=== PATIENT | female | born 1960 | race Asian ===

== ENCOUNTER 2018-10-30 07:07 | Inpatient (IN) | payer OTHER ==
[2018-10-27 12:04] VITALS: BMI 29.2
[2018-10-30] MEDS ORDERED: Levofloxacin 500 mg/D5W 100 ml Premix Bag ONE (07:56)
[2018-10-30] MEDS ORDERED: Clindamycin/D5W 900 mg/50 ml Premix Bag ONE (07:56)
[2018-10-30 08:40] LABS: #Basophils 0.1 thou/uL (0.0-0.2); #Eosinphils 0.3 thou/uL (0.0-0.7); #Lymphocytes 2.8 thou/uL (1.20-3.40); #Monocytes 0.5 thou/uL (0.11-0.59); #Neutrophils 4.5 thou/uL (1.40-6.50); %Basophils 0.7 % (0.0-1.0); %Eosinophils 3.7 % (0.0-10.0); %Lymphocytes 34.3 % (21.0-51.0); %Monocytes 6.3 % (0.0-10.0); %Neutrophils 55.1 % (42.0-75.0); Hemoglobin 14.5 g/dL (12.0-16.0); Mean Corpuscular HGB CONC 33.2 g/dL (32.0-36.0); Mean Corpuscular Volume 81.2 fL (78.0-98.0); Mean Platelet Volume 8.2 fL (7.4-10.4); Platelet Count 249 thou/uL (130-400); RBC Distribution Width 12.7 % (11.5-14.5); Red Blood Cell (RBC) Count 5.38 mill/uL (4.20-5.40); White Blood Cell (WBC) Count 8.2 thou/uL (4.8-10.8)
[2018-10-30] MEDS ORDERED: Sodium Chloride 0.9% 10 ML ONE (08:50)
[2018-10-30 08:57] LABS: Anion Gap 13 mmol/L (10-20); BUN (Urea Nitrogen) 10 mg/dL (9.8-20.1); Calc. Creatinine Clearance 91 mL/min (70-130); Calcium 9.6 mg/dL (7.8-10.44); Carbon Dioxide 25 mmol/L (22-29); Chloride 104 mmol/L (98-107); Estimated GFR-MDRD 84; Glucose 112 mg/dL (70-105); Potassium 3.3 mmol/L (3.5-5.1); Sodium 139 mmol/L (136-145)
[2018-10-30] MEDS ORDERED: Fentanyl 100 MCG/2 ML VIAL ONE ×3 (09:04→11:17)
[2018-10-30] MEDS ORDERED: tiZANidine HCl 4 MG TAB PO PRN (10:56)
[2018-10-30] MEDS ORDERED: Ondansetron PF 4 MG/2 ML Vial IM PRN (10:56)
[2018-10-30] MEDS ORDERED: Promethazine HCl 12.5 MG SUPP PR PRN (10:56)
[2018-10-30] MEDS ORDERED: traMADol HCl 50 MG TAB PO PRN ×2 (10:56)
[2018-10-30] MEDS ORDERED: diphenhydrAMINE 50 MG/ML VIAL IVP PRN (10:56)
[2018-10-30] MEDS ORDERED: Mag-Al 1200 mg/1200 mg/30 ML UDCUP PO PRN (10:56)
[2018-10-30] MEDS ORDERED: Milk Of Magnesia 30 ML UDCUP PO PRN (10:56)
[2018-10-30] MEDS ORDERED: Promethazine 25 MG TAB PO PRN (10:56)
[2018-10-30] MEDS ORDERED: HYDROcodone/Acetaminophen 10/325 mg Tablet PO PRN (10:56)
[2018-10-30] MEDS ORDERED: Promethazine HCl 25 MG/ML VIAL IM PRN ×2 (10:56→11:29)
[2018-10-30] MEDS ORDERED: diphenhydrAMINE 25 MG CAP PO PRN (10:56)
[2018-10-30] MEDS ORDERED: Morphine 4 MG/ML VIAL SLOW IVP PRN (10:56)
[2018-10-30] MEDS ORDERED: Morphine 2 MG/ML SYRINGE SLOW IVP PRN (11:15)
[2018-10-30] MEDS ORDERED: Ondansetron HCl/PF 4 MG/2 ML Vial IVP PRN (11:29)
[2018-10-30] MEDS ORDERED: Promethazine HCl 25 MG/ML VIAL SLOW IVP PRN (11:29)
--- NOTE | 2018-10-30 12:07 | OP ---
DATE OF PROCEDURE: 10/30/2018 CERTIFIED CODER: Nicole Joseph PA-C PROCEDURE PERFORMED: Lumbar laminectomy, L3 to L5, posterolateral arthrodesis, pedicle screw instrumentation, L4, L5, demineralized bone matrix, local morselized autograft. DESCRIPTION OF PROCEDURE: The patient was brought to the operating room and intubated. She was rolled in the prone position on gel-filled chest rolls. An incision was made exposing L3 through L5 and the level was confirmed by x-ray. We performed complete L5, complete L4, and inferior L3 laminectomies, completely decompressing L3 through L5. There were two pin holes in the dura related to bony spicules with CSF emanating from the dura. After complete decompression had been secured, pedicle screws were placed at right L4 and right L5 using lateral fluoroscopic guidance. The tae was secured between the screws, connected by nuts, which were final tightened. The wound was then extensively irrigated and MAC hemostasis was secured. A combination of demineralized bone matrix, local morselized autograft was laid over the lamina and posterolateral surfaces for the purpose of arthrodesis. Vancomycin powder was applied and the wound was then closed in anatomic layers over drain after the application of DuraSeal. Job ID: [id number]
[2018-10-30] MEDS: HYDROcodone/Acetaminophen 10/325 mg Tablet PO PRN ×3 (12:49→22:09)
[2018-10-30] MEDS: Sodium Chloride 0.9% 1,000 ML IV SCH (12:54)
[2018-10-30] MEDS ORDERED: PROPOFOL 200 MG/20 ML VIAL ONE (14:55)
[2018-10-30] MEDS ORDERED: Succinylcholine Chloride 20 MG/ML 10 ml SYRINGE FS ONE (14:55)
[2018-10-30] MEDS ORDERED: Dexamethasone 20 MG/5 ML VIAL ONE (14:55)
[2018-10-30] MEDS ORDERED: Lidocaine 1% PF 5 ML VIAL ONE (14:55)
[2018-10-30] MEDS ORDERED: Rocuronium Bromide 10 MG/ML (10ML VIAL) ONE (14:55)
[2018-10-30] MEDS ORDERED: Glycopyrrolate 0.2 MG/ML 5 ML SYRINGE ONE (14:55)
[2018-10-30] MEDS ORDERED: Ketorolac Tromethamine 30 MG/ML VIAL ONE (14:55)
[2018-10-30] MEDS ORDERED: Ondansetron PF 4 MG/2 ML Vial ONE (14:55)
[2018-10-30] MEDS ORDERED: ePHEDrine 50 MG/ML VIAL ONE (14:55)
--- NOTE | 2018-10-30 15:20 | EKG ---
Test Reason : PREOP Blood Pressure : / mmHG Vent. Rate : 075 BPM Atrial Rate : 075 BPM P-R Int : 166 ms QRS Dur : 082 ms QT Int : 404 ms P-R-T Axes : 054 051 013 degrees QTc Int : 451 ms Normal sinus rhythm Normal ECG No previous ECGs available Confirmed by DR. Kristofer PLUNKETT ([id number]) on 10/30/2018 3:19:42 PM Referred By: MONTEZ Confirmed By:DR. Kristofer PLUNKETT
[2018-10-30] MEDS: Gabapentin 300 MG CAP PO SCH ×2 (15:21→20:56)
[2018-10-30] MEDS: Clindamycin/D5W 900 MG in Premix Bag 1 BAG IVPB SCH ×2 (15:21→23:11)
[2018-10-30] MEDS: Ferrous Sulfate 325 MG TAB PO SCH (20:56)
[2018-10-31] MEDS: Sodium Chloride 0.9% 1,000 ML IV SCH (01:40)
[2018-10-31] MEDS: HYDROcodone/Acetaminophen 10/325 mg Tablet PO PRN ×3 (02:02→11:44)
[2018-10-31] MEDS: Clindamycin/D5W 900 MG in Premix Bag 1 BAG IVPB SCH (07:31)
[2018-10-31 07:41] VITALS: BP 105/65; TEMP 98.5
[2018-10-31] MEDS: Gabapentin 300 MG CAP PO SCH (08:03)
[2018-10-31] MEDS: Ferrous Sulfate 325 MG TAB PO SCH (08:04)
[2018-10-31] MEDS ORDERED: Fish Oil 1,000 MG CAP PO SCH (09:00)
[2018-10-31] MEDS ORDERED: Multivit, Therapeutic 1 TAB PO SCH (09:00)
[2018-10-31] MEDS ORDERED: Losartan/Hydrochlorothiazide 100 mg/25 mg Tablet PO SCH (09:00)
--- NOTE | 2018-11-01 03:41 | DIS ---
DATE OF ADMISSION: 10/30/2018 DATE OF DISCHARGE: 10/31/2018 HOSPITAL COURSE: Patient is a 58-year-old female who was recently evaluated in our office for low back pain and neurogenic claudication and found to have stenosis and listhesis; stenosis from L3-L5 and listhesis at L4-L5. She underwent L3-L5 decompression and L4-5 fusion on 10/31/2018. Following the surgery, she was transitioned to the Med/Surg floor, where her pain has been well-controlled with p.o. medications, she has been tolerating a regular diet, and she has been voiding without difficulty. She has been walking back and forth to the bathroom without any difficulty. She did have AJ drain placed intraoperatively and it only had small amount of output 30 mL overnight. OBJECTIVE: On exam this morning, patient is awake, alert, in no acute distress. She has free active range of motion of all extremities. No focal motor weakness. Her reflexes are intact and symmetric. Her incision is clean, dry, and intact. PLAN: We will plan to remove her AJ drain and dismiss to home. I have discussed home care precautions. We will follow up with the patient in 2 weeks. Job ID: [id number]
== END 2018-10-31 12:06 | disposition home or self-care (01) | DRG 460 ==
LOC: SURG A 07:07
PROVIDERS: ADMIT Neurological Surgery; ATTEND Neurological Surgery
PROC: 0SG1071 Fusion of 2 or more Lumbar Vertebral Joints with Autologous Tissue Substitute, Posterior Approach, Posterior Column, Open Approach (ICD-10-PCS; principal; 2018-10-30)
DX: M48.062 Spinal stenosis, lumbar region with neurogenic claudication (principal); M43.16 Spondylolisthesis, lumbar region; E66.9 Obesity, unspecified; I10 Essential (primary) hypertension; E78.5 Hyperlipidemia, unspecified; Z88.0 Allergy status to penicillin; Z68.29 Body mass index [BMI] 29.0-29.9, adult
CPT/HCPCS: 36415; 36416; 76000; 80048; 85025; 93005; 93010; J1100; J1885; J1956; J2001; J2405; J2704; J3010; J3370; J3490

== ENCOUNTER 2018-11-14 11:19 | Outpatient (CLI) | payer OTHER ==
--- NOTE | 2018-11-14 11:45 | RAD ---
EXAM: 3 views of the lumbosacral spine HISTORY: Lumbar stenosis and spondylolisthesis COMPARISON: None FINDINGS: 3 views of the lumbosacral spine shows normal height and alignment of the vertebral bodies and intervertebral discs without fracture or subluxation. The patient is status post fusion of L3, L4 and L5 with right-sided pedicle screws. No perihardware lucency is seen. Laminectomies have been p erformed at L4 and L5. The sacroiliac joints are unremarkable. IMPRESSION: Postsurgical changes of the spine without evidence of complication.
== END 2018-11-14 11:20 | disposition home or self-care (01) ==
LOC: TBSIIMAG 11:19
PROVIDERS: ATTEND Neurological Surgery
DX: M43.16 Spondylolisthesis, lumbar region (principal); M48.061 Spinal stenosis, lumbar region without neurogenic claudication; Z98.1 Arthrodesis status
CPT/HCPCS: 72100